=== PATIENT | male | born 1990 | race African-American/Black ===

== ENCOUNTER 2018-08-01 20:11 | Emergency (ER) | payer SELFPAY ==
[~2018-08-01] VITALS: Ht 172.7 cm; Wt 70.3 kg
[2018-08-01 20:39] VITALS: BP 138/84
[2018-08-01 20:59] VITALS: BP 95/84
[2018-08-01 21:00] VITALS: BP 133/80
--- NOTE | 2018-08-07 07:13 | Emergency Room Report ---
History of Present Illness General Chief Complaint: Medical Clearance Source: Patient Present Illness HPI Patient presents with Police Department/forensic science technician department for clearance for booking Patient was placed under arrest by forensic science technician department And after patient had complained of total body ache Runny nose Symptoms have been ongoing for the past several days Denies any chest pain denies any vomiting or diarrhea denies any fevers Allergies: Coded Allergies: No Known Allergies (Unverified , 08/01/18) Patient History Past Medical History: see triage record Pertinent Family History: none Reviewed Nursing Documentation: PMH: Agreed; PSxH: Agreed Nursing Documentation-PMH History Of Psychiatric Problem: Yes - anxiety , depression Review of Systems All Other Systems: negative except mentioned in HPI Physical Exam 98% on room air Sp02 EP Interpretation: reviewed, normal General Appearance: well appearing, no apparent distress Head: normocephalic, atraumatic Eyes: bilateral eye PERRL, bilateral eye EOMI ENT: hearing grossly normal, normal pharynx, TMs + canals normal, uvula midline Neck: full range of motion, supple, no meningismus, no bony tend Respiratory: lungs clear, normal breath sounds, no rhonchi, no respiratory distress, no retraction, no accessory muscle use Cardiovascular #1: normal peripheral pulses, regular rate, rhythm Gastrointestinal: non tender, soft, no mass, non-distended Musculoskeletal: normal inspection Neurologic: oriented x3, responsive, motor strength/tone normal, sensory intact Skin: normal color, no rash, warm/dry, palpation normal Lymphatic: normal inspection, no adenopathy Medical Decision Making Diagnostic Impression: Primary Impression: ok to book Additional Impression: flu like symptoms ER Course Patient has a benign medical screening evaluation Appears to have findings consistent with simple URI Consideration for meningitis and other infectious pathology is made Patient is otherwise stable for further booking and cristopher Sarkar follow-up as needed Status: unchanged Disposition: D/C TO LAW ENFORCEMENT IN [facility] Condition: Stable Referrals: NOT CHOSEN IPA/MD,REFERRING (PCP) Departure Forms: Assisted Clearance Patient Instructions: Influenza, Adult, [id number] Additional Instructions: Follow-up cristopher Sarkar in the morning Kip Engel DO Aug 07, 2018 07:13
== END 2018-08-02 08:51 ==
LOC: EMR 20:30
DX: M79.10 Myalgia, unspecified site (principal); F41.9 Anxiety disorder, unspecified; F32.9 Major depressive disorder, single episode, unspecified
CPT/HCPCS: 99283